=== PATIENT | female | born 1990 | race Caucasian/White ===

== ENCOUNTER 2020-02-18 01:20 | Emergency (ER) | payer OTHER ==
[~2020-02-18] VITALS: Ht 160 cm; Wt 90.9 kg
[2020-02-18 01:34] VITALS: TEMP 98.1
[2020-02-18 02:16] LABS: BASO # 0.1 (0.0-0.2); BASO % 0.5 % (0.0-2.0); EOS # 0.1 (0.0-0.7); EOS % 0.8 % (0-4.0); GRAN # 5.8 (1.4-6.5); GRAN % 59.9 % (42.2-75.2); HEMOGLOBIN 15.5 g/dl (12.5-16.0); LYMPH # 2.9 (1.2-3.4); LYMPH % 29.5 % (20.0-51.0); MEAN CELL VOLUME 86 fl (80.0-100.0); MEAN CORPUSCULAR HEMOGLOBIN 28 pg (27.0-31.0); MEAN CORPUSCULAR HGB CONC 33 g/dl (33.0-37.0); MEAN PLATELET VOLUME 10.4 fl (7.4-10.4); MONO # 0.9 (0.1-0.6); PLATELET COUNT 313 K/mm3 (130-400); RED BLOOD COUNT 5.48 M/mm3 (4.10-5.30); REDCELL DISTRIBUTION WIDTH-CV 12.5 % (11.5-14.5)
[2020-02-18 02:21] LABS: ALANINE AMINOTRANSFERASE 22 U/L (4-34); ALBUMIN 4.9 gm/dL (3.5-5.0); ALCOHOL(ethanol),MEDICAL 104 mg/dL; ALKALINE PHOSPHATASE 102 U/L (50-136); ANION GAP 11 mmol/L (7-16); AST,SGOT 27 U/L (15-37); BILIRUBIN,TOTAL 0.4 mg/dL (0.0-1.0); BLOOD UREA NITROGEN 10 mg/dL (7-17); CALCIUM 9.9 mg/dL (8.4-10.2); CARBON DIOXIDE 25 mmol/L (22-30); CHLORIDE 105 mmol/L (98-107); CREATININE, serum 0.84 (0.52-1.25); GLUCOSE 127 mg/dL (74-106); POTASSIUM 4.2 mmol/L (3.4-5.0); SODIUM 141 mmol/L (137-145); TOTAL PROTEIN 8.6 gm/dL (6.4-8.2)
[2020-02-18 02:30] LABS: ACETAMINOPHEN < 10 ug/mL (10-30); SALICYLATE < 1.0 mg/dL
[2020-02-18 02:30] LABS: COLLECTION METHOD CLEAN CATCH
[2020-02-18 02:42] LABS: MUCOUS Present /lpf; PH 5 (5-8); URINE APPEARANCE Clear; URINE BACTERIA Rare /hpf; URINE BILIRUBIN Negative (NEGATIVE); URINE BLOOD Negative (NEGATIVE); URINE COLOR Yellow; URINE GLUCOSE Negative (NEGATIVE); URINE KETONE Negative (NEGATIVE); URINE LEUKOCYTE ESTERASE Trace (NEGATIVE); URINE NITRATE Negative (NEGATIVE); URINE PROTEIN(semi-quant) Negative (NEGATIVE); URINE RBC None Seen /hpf; URINE UROBILINOGEN Negative (NEGATIVE)
[2020-02-18 02:53] LABS: TRICYCLIC ANTIDEPRESS URINE NEGATIVE
[2020-02-18 07:41] VITALS: BP 137/95; PULSE 104
== END 2020-02-18 08:01 | disposition home or self-care (01) ==
LOC: COL.ER 01:20
PROVIDERS: Nurse Practitioner Primary Care
DX: R45.851 Suicidal ideations (principal); F32.9 Major depressive disorder, single episode, unspecified

== ENCOUNTER 2020-10-23 05:28 | Inpatient (IN) | payer OTHER ==
[2020-10-23] VITALS (15 sets, daily range): BP systolic 95–146; BP diastolic 47–86; PULSE 72–97; TEMP 97.1–98.7
[~2020-10-23] VITALS: Ht 157.5 cm; Wt 103.6 kg
--- NOTE | 2020-10-23 05:45 | NUR ---
Pt here for scheduled . Pt ambulatory to 220. Clean gown on. EFM and and TOCO explained and applied. Pt denies contractions, leaking of fluids or vaginal bleeding. Reports good movement. Plan of care explained and questions answered.
[2020-10-23 06:44] LABS: BASO # 0.1 (0.0-0.2); BASO % 0.4 % (0.0-2.0); EOS # 0.1 (0.0-0.7); EOS % 0.6 % (0-4.0); GRAN # 10.4 (1.4-6.5); HEMATOCRIT 41.2 % (37.0-47.0); HEMOGLOBIN 13.1 g/dl (12.5-16.0); LYMPH # 2.6 (1.2-3.4); LYMPH % 17.8 % (20.0-51.0); MEAN CELL VOLUME 83 fl (80.0-100.0); MEAN CORPUSCULAR HEMOGLOBIN 27 pg (27.0-31.0); MEAN CORPUSCULAR HGB CONC 32 g/dl (33.0-37.0); MEAN PLATELET VOLUME 12.5 fl (7.4-10.4); MONO # 1.2 (0.1-0.6); MONO % 8.3 % (1.7-9.3); PLATELET COUNT 237 K/mm3 (130-400); RED BLOOD COUNT 4.95 M/mm3 (4.10-5.30); REDCELL DISTRIBUTION WIDTH-CV 13.7 % (11.5-14.5)
[2020-10-23] MEDS ORDERED: PROCARDIA XL 3030 MG PO (07:29)
[2020-10-23] MEDS ORDERED: GLUCOPHAGE500 MG/TAB PO (07:29)
[2020-10-23] MEDS ORDERED: FOLIC ACID0.8 MG PO (07:30)
[2020-10-23] MEDS ORDERED: PRENATAL (07:30)
[2020-10-23] MEDS ORDERED: HUMALOG100 U/ML SQ (07:31)
--- NOTE | 2020-10-23 11:29 | NUR ---
1130 PATIENT READY FOR OR AT THIS TIME
--- NOTE | 2020-10-23 14:27 | NUR ---
Pt transfered to room. Pt sitting up eating soup and salad. Abdominal incision CDI. Light rubra lochia light to pad. Fundus firm and approximately 2 inches below the umbulicus. Pt declines pain at this time. SCDs on bilateral lower extremities. INT in right hand CDI. Mo in place draining clear yellow urine.
--- NOTE | 2020-10-23 16:03 | NUR ---
ALL POST RECOVERY VITALS DONE BY STUDENT AND UNDER VITAL SIGNS RECORD
[2020-10-24 00:05] VITALS: BP 131/76; PULSE 101; TEMP 98.3
[2020-10-24 04:00] VITALS: BP 153/80; PULSE 97; TEMP 98.6
[2020-10-24 08:15] VITALS: BP 137/59; PULSE 92; TEMP 98
--- NOTE | 2020-10-24 10:06 | NUR ---
Initial dose of Procardia ER 30mg PO 1 tab, given as ordered.
--- NOTE | 2020-10-24 10:50 | NUR ---
Follow-up visit; Parents thanked [employer] for offering congratulations and God's blessings for the of their daughter. [employer] thanked family for choosing [facility].
[2020-10-24 12:07] VITALS: BP 133/71; PULSE 98; TEMP 98.1
[2020-10-24 16:30] VITALS: BP 119/70; PULSE 98; TEMP 97.9
--- NOTE | 2020-10-24 17:45 | NUR ---
Request pain medication. 1750 Percocet 5/325 mg two given as ordered and per request.
[2020-10-24 21:30] VITALS: BP 135/59; PULSE 80; TEMP 98.4
[2020-10-25 07:24] VITALS: BP 124/78; PULSE 76; TEMP 98.1
[2020-10-25] MEDS ORDERED: IBU600 MG PO (08:13)
[2020-10-25] MEDS ORDERED: PERCOCET 325 MG1 TA2 PO (08:13)
== END 2020-10-25 15:48 | disposition home or self-care (01) | DRG 787 ==
LOC: OB 05:28
PROVIDERS: ADMIT Obstetrics & Gynecology
PROC: 10D00Z1 Extraction of Products of Conception, Low, Open Approach (ICD-10-PCS; principal; 2020-10-23)
DX: O36.63X0 Maternal care for excessive fetal growth, third trimester, not applicable or unspecified (principal); O10.02 Pre-existing essential hypertension complicating childbirth; O99.214 Obesity complicating childbirth; E66.9 Obesity, unspecified; O24.425 Gestational diabetes mellitus in childbirth, controlled by oral hypoglycemic drugs; Z37.0 Single live birth; Z3A.37 37 weeks gestation of pregnancy
CPT/HCPCS: J0690; J1100; J1885; J2405; J2590; J2765; J7120

== ENCOUNTER → 2020-10-23 | Outpatient (CLI) | payer OTHER ==
[~2020-10-23] MED LIST: FOLIC ACID0.8 MG PO; GLUCOPHAGE500 MG/TAB PO; HUMALOG100 U/ML SQ; IBU600 MG PO; PERCOCET 325 MG1 TA2 PO; PRENATAL; PROCARDIA XL 3030 MG PO
== END ==
LOC: ZCOL.LAB
DX: M25.561 Pain in right knee (principal); Z20.822 Contact with and (suspected) exposure to COVID-19